=== PATIENT | female | born 1975 | race Caucasian/White ===

== ENCOUNTER → 2021-05-01 | Day surgery (SDC) | payer OTHER ==
[~2021-05-01] VITALS: Ht 149.9 cm; Wt 60.3 kg
[~2021-05-01] MED LIST: PANTOPRAZOLE SO40 MG PO; PROAIR HFA8.5 GM INH
[2021-05-01 09:51] LABS: HCG (URINE) SCREEN NEGATIVE (NEGATIVE)
[2021-05-01 10:30] LABS: HCT 34.9 % (37.0-47.0); HGB 10.6 g/dl (12.5-16.0); MCH 25.8 pg (25.0-31.0); MCHC 30.4 g/dL (32.0-36.0); MCV 84.9 fL (78.0-100.0); MPV 8.8 fL (6.0-9.5); RBC 4.11 M/uL (4.20-5.40); RDW 14.2 % (11.5-14.0); WBC 4.9 K/uL (4.0-10.5)
== END | disposition home or self-care (01) ==
LOC: FAS 09:06
PROVIDERS: Obstetrics & Gynecology
DX: N84.1 Polyp of cervix uteri (principal); N84.0 Polyp of corpus uteri; J45.909 Unspecified asthma, uncomplicated; D64.9 Anemia, unspecified; F41.9 Anxiety disorder, unspecified; F32.9 Major depressive disorder, single episode, unspecified; E78.2 Mixed hyperlipidemia; K21.9 Gastro-esophageal reflux disease without esophagitis; M06.9 Rheumatoid arthritis, unspecified; Z79.899 Other long term (current) drug therapy
CPT/HCPCS: 36415; 84703; 86850; 86900; 86901; J1100; J2250; J2405; J2704; J3010; J7120